=== PATIENT | female | born 1955 | race Caucasian/White ===

== ENCOUNTER → 2021-05-06 | Outpatient (CLI) | payer BC ==
[~2021-05-06] MED LIST: ASPI-630 PO; CETI10TA74 PO; CLON0.1T PO; DICL75TA PO; EPIPEN0.3 MG/0.3 IM; IOHEXOL 180 MG/ML 10 ML VIAL. ONE; LEVE100020 PO; LISI1TAB20 PO; LOVA40TA2 PO; PRED1TAB3 PO; TIZA4TAB8 PO; VITA1TAB60 PO; methylPREDNISolone ACETATE 80 MG/ML VIAL. ONE
--- NOTE | 2021-05-06 16:05 | PDOC1 ---
INITIAL PAIN CONSULT DATE OF SERVICE: DOS: DATE: 05/06/21 TIME: 15:58 CHIEF COMPLAINT: Chief Complaint: Low back and bilateral lower extremity pain HISTORY OF PRESENT ILLNESS: 65-year-old female presents with history of pain low back bilateral lower extremities for many years worse over the past year or so after fall years ago with a pars fracture at L5 with pain chronically but exacerbating over the last year or so patient reports she been working at [employer] and this exacerbated the pain significantly patient has some work restrictions now from her neurosurgeon which she reports is helping but still have significant pain in the low back bilateral lower extremities with stabbing pain sharp pain in the back intermittent intensity numbness and radiating pain in the legs bilaterally aching right essentially equal to left with spasticity and cramping in the legs as well patient reports it wakes her from sleep occasionally but not most nights that she is taking some Zanaflex to help her sleep patient reports is not effective bowel bladder control does affect her ability to walk patient reports she has had epidural injections in 2007 which were very helpful once was in [place] also doing exercise currently patient is taking diclofenac and Zanaflex currently no other medications at this time patient rates her disability rating 0-10 10 being the worst is a 9 with family home responsibilities recreation and occupation 1 with social activity and sexual behavior 5 with self-care 1 with life support activities. Patient have an MRI scan lumbar spine showing multilevel degenerative disc changes with disc bulges ill [id number] and 5 S1 with severe facet arthrosis at L4-5 bilateral recess narrowing at L3-4 L4-5 and L5S1 mild left neuroforaminal narrowing at L4-5 and severe bilateral lateral recess narrowing L5-S1. Patient reports no loss of motor function no bowel or bladder incontinence. PAST MEDICAL HISTORY: PMH: Pretension, arthritis, meningitis, asthma PREVIOUS SURGERIES: Past Surgical Hx: Cervical fusion both anterior and posterior, cervical hemilaminectomy, hysterectomy CURRENT MEDICATIONS: Current Meds: Active Scripts Medications Dose Route/Sig Max Daily Dose Days Date Category Epipen (Epinephrine) 0.3 Mg/0.3 Ml Auto.injct 0.3 Mg IM UD 05/06/21 Reported Prednisone 1 Mg Tablet Unknown Dose PO DAILY PRN 05/06/21 Reported Zyrtec (Cetirizine Hcl) 10 Mg Tablet 1 Tab PO DAILY 05/06/21 Reported Complex B-100 (Vitamin B Complex) 1 Each Tablet.er 1 Each PO DAILY 05/06/21 Reported Lovastatin 40 Mg Tablet 40 Mg PO HS 05/06/21 Reported Clonidine Hcl 0.1 Mg Tablet 1 Tab PO QHS 05/06/21 Reported Zanaflex (Tizanidine Hcl) 4 Mg Tablet 1 Tab PO BID 30 05/06/21 Reported Diclofenac Sodium 75 Mg Tablet.dr 1 Tab PO BID 05/06/21 Reported Lisinopril-Hctz 20-25 Mg Tab (Lisinopril/Hydrochlorothiazide) 1 Each Tablet 1 Tab PO DAILY 05/06/21 Reported Aspirin 81 Mg Tab.chew 1 Tab PO DAILY 05/06/21 Reported Keppra (Levetiracetam) 1,000 Mg Tablet 1 Tab PO BID 30 05/06/21 Reported ALLERGIES; Allergies: Uncoded Allergies: enviroment (Allergy, Severe, Anaphylaxis, 05/06/21) FAMILY HISTORY: Family Hx: Hypertension and heart disease SOCIAL HISTORY: Social Hx: Patient is under alcohol does not smoke says any illegal illicit or recreational drugs is single lives in [facility], and works at [employer]. REVIEW OF SYSTEMS: ROS: Positive for those items mentioned in history of present illness, all systems are reviewed, otherwise negative ,and are complete full and well-documented on patient's chart. PHYSICAL EXAM: VS: Blood pressure is 170/111 pulse 66 respirations 18 temperature is 90.3 F height is 5 feet 7 inches weight is 155 pounds PE: PHYSICAL EXAMINATION: GENERAL: The patient is awake, alert, oriented, appropriate, very pleasant demeanor HEENT: Shows normocephalic, atraumatic. Extraocular movements are intact and symmetrical. Oral cavity: Mucous membranes moist and pink. Dentition is intact. NECK: Shows anterior throat supple without palpable lymphadenopathy noted. Swallow reflex symmetrical. CHEST: Shows normal on inspection. Breath sounds are clear bilaterally, no rales rhonchi wheezes. HEART: Shows S1, S2 clear. No murmurs auscultated. ABDOMEN: Soft, nontender, nondistended, obese. No palpable organomegaly is noted. BACK: Shows spine grossly in the midline. Normal-appearing cervical lordotic curvature. Cervical well-healed surgical scars noted both anteriorly and posteriorly. Patient has full rotation motion cervical spine with lateral as well as full extension full forward flexion without significant difficulty. There is increased thoracic kyphosis, some minor flattening of the lumbar lordotic curvature. Lumbar paraspinous muscles show symmetrical on inspection, on palpation shows some moderate tenderness diffusely throughout the upper, middle and lower distribution of the paraspinous muscles bilaterally and also into the lower thoracic paraspinous musculature, firm and tender, but without specific trigger points, without radiation of pain. The patient has good rotational motion of the lumbar spine, both laterally as well as extension and flexion without significant difficulty. No tenderness over the spinous processes, sacrum or sacroiliac regions. EXTREMITIES: Lower extremities show deep tendon reflexes 2+ in the patellar and tendo calcaneus tendons. Motor exam is 5 on a scale of 5 with right d orsiflexion, extension, quadriceps and hamstring flexion and 5/5 on the left. Peripheral pulses are 1 posterior tibial. No peripheral edema is noted bilaterally. Lower extremities are warm and dry to touch, equal in color and appearance. Straight leg raise noted to be negative bilaterally. Gaenslen's and Vladislav's maneuvers are negative bilaterally as well. The patient is able to stand, stand on her toes without significant difficulty loss of balance, walks with a normal-appearing gait does not appear to favor the right or left lower extremity significantly, is not use any assistive devices with ambulation on her visit today. SKIN: Shows warm and dry, good turgor. No edema. No sores, rashes or bruising throughout. IMPRESSION: Impression: 65-year-old female with long history of low back pain bilateral lower extremity pain worse over the past year or so consistent with radiculopathy. MRI scan lumbar spine as noted Hypertension Arthritis Asthma Plan: Options discussed with the patient including conservative medical management physical therapies interventional techniques. As patient is been through multiple conservative measures and physical therapy over the years she like to pursue interventional techniques. We discussed a lumbar epidural steroid injection using descriptions as well as anatomical models to describe the procedure. Risks were discussed including but not limited to: Bleeding, infection, possibility of epidural hematoma and subsequent neurological compromise, dural puncture, headaches, spinal cord and/or nerve damage, side effects of steroid medication, and poor results regarding pain control. Patient understands and wished to proceed. Patient will return to the clinic in approximately 4 weeks for follow-up, was counseled as to return appointment activity level and side effects to be aware of. Procedure is lumbar epidural steroid injection under local anesthetic using sterile prep and drape at the L4-5 level using C-arm fluoroscopic guidance in both AP and lateral views medications injected is 120 mg Depo-Medrol +10mL preservative-free normal saline and 2 mL contrast- condition at discharge is stable patient tolerated procedure well had no complications. MARIAM MCCORMACK MD May 06, 2021 16:05
--- NOTE | 2021-05-06 16:06 | PDOC4 ---
Procedure Note: ICD 10 Code: ICD 10 Code: M54.16 M51.36 M4 3.17 Procedure Note: Patient was consented for lumbar epidural steroid injection with fluoroscopic guidance. Risks were discussed including but not limited to: Bleeding, infection, possibility of epidural hematoma and subsequent neurological compromise, dural puncture, headaches, spinal cord and/or nerve damage, side effects of steroid medication, and poor results regarding pain control. Patient understands and wished to proceed. Procedure is lumbar epidural steroid injection under local anesthetic using serenity rile prep and drape at the L4-5 level using C-arm fluoroscopic guidance in both AP and lateral views medications injected is 120 mg Depo-Medrol +10mL preservative-free normal saline and 2 mL contrast- condition at discharge is stable patient tolerated procedure well had no complications. MARIAM MCCORMACK MD May 06, 2021 16:06
== END | disposition home or self-care (01) ==
LOC: PNCL 14:20
PROVIDERS: ATTEND Anesthesiology
DX: M54.5 Low back pain (principal); M51.16 Intervertebral disc disorders with radiculopathy, lumbar region; M43.17 Spondylolisthesis, lumbosacral region; M79.605 Pain in left leg; M79.604 Pain in right leg; I10 Essential (primary) hypertension; M19.90 Unspecified osteoarthritis, unspecified site; J45.909 Unspecified asthma, uncomplicated; Z79.82 Long term (current) use of aspirin; Z79.899 Other long term (current) drug therapy; Z90.710 Acquired absence of both cervix and uterus; Z98.890 Other specified postprocedural states; Z82.49 Family history of ischemic heart disease and other diseases of the circulatory system
CPT/HCPCS: 62323; 99205; J1040; Q9965; G0463

== ENCOUNTER → 2021-05-21 | Outpatient (CLI) | payer BC ==
[~2021-05-21] MED LIST changes: -IOHEXOL 180 MG/ML 10 ML VIAL. ONE; -methylPREDNISolone ACETATE 80 MG/ML VIAL. ONE
--- NOTE | 2021-05-21 10:14 | PDOC ---
Progress Note - Pain Clinic Date of Service: DOS: DATE: 05/21/21 TIME: 10:10 Diagnosis: Dx: Lumbar radiculopathy with lumbar degenerative disease lumbar spondylolisthesis History or Present Illness: HPI: 65-year-old female returns for follow-up status post lumbar epidural steroid injection x1 last seen May 06, 2021 patient did very well with about 90 to 100% improvement initially but the pain is beginning to return now about 2 days ago in the low back into the bilateral lower extremities worse on the left than the right posterior gluteus posterior lateral thigh lateral anterior thigh anteromedial thigh medial lower legs also with some significant cramping in the right and left legs and the hamstring regions frequently patient reports is getting to the point where some of the cramping is debilitating where she had this happen when she was standing and was unable to move for several minutes patient reports she had aching pain for about 2 to 3 days following that as well patient reports no new motor or sensory deficits no bowel or bladder incontinence. Patient also has a new finding of spasms in her upper arms bilaterally as well which are infrequent but are painful at that time and occur mostly at night. Reviewed patient's medication list and she is taking Zanaflex at night because it does make her drowsy but is not sure this is helping to reduce the cramping and spasticity. Physical Exam: VS: Blood pressure is 130/86 pulse 78 respirations 16 temperature 90.0 F weight is 154 pounds PE: PHYSICAL EXAMINATION: GENERAL: The patient is awake, alert, oriented, appropriate, very pleasant in demeanor HEENT: Shows normocephalic, atraumatic. Extraocular movements are intact and symmetrical. Oral cavity: Mucous membranes moist and pink. Dentition is intact. NECK: Shows anterior throat supple without palpable lymphadenopathy noted. Swallow reflex symmetrical. CHEST: Shows normal on inspection. Breath sounds are clear bilaterally, distant no rales or. HEART: Shows S1, S2 clear. No murmurs auscultated. ABDOMEN: Soft, nontender, nondistended, obese. No palpable organomegaly is noted. BACK: Shows spine grossly in the midline. Normal-appearing cervical lordotic curvature. There is slightly increased thoracic kyphosis, some flattening of the lumbar lordotic curvature. Lumbar paraspinous muscles show symmetrical on inspection, on palpation shows some moderate tenderness diffusely throughout the upper, middle and lower distribution of the paraspinous muscles without specific trigger points, without radiation of pain. The patient has good rotational motion of the lumbar spine, both laterally as well as extension and flexion without significant difficulty. EXTREMITIES: Lower extremities show deep tendon reflexes 2+ in the patellar and tendo calcaneus tendons. Motor exam is 5 on a scale of 5 with right dorsiflexion, extension, quadriceps and hamstring flexion and 5/5 on the left. Peripheral pulses are 1 posterior tibial. No peripheral edema is noted bilaterally. Lower extremities are warm and dry to touch, equal in color and appearance. SKIN: Shows warm and dry, good turgor. No edema. No sores, rashes or bruising throughout. Procedure: Procedure: Options discussed with patient. Patient chart was reviewed as her current medication regimen updated current review of systems updated today as well. We will prescribe Medrol Dosepak with instructions side effects beware of. Patient will return approximately 2 weeks as she will have insurance authorization for time limitation on conventional treatment. Patient was given instructions well side effects beware with the medication. Medication Injected: Med Injected: None Condition at Discharge: Condition at Discharge: Condition at discharge is stable. MARIAM MCCORMACK MD May 21, 2021 10:14
== END | disposition home or self-care (01) ==
LOC: PNCL 09:33
PROVIDERS: ATTEND Anesthesiology
DX: M51.16 Intervertebral disc disorders with radiculopathy, lumbar region (principal); M43.16 Spondylolisthesis, lumbar region; Z79.82 Long term (current) use of aspirin; Z79.899 Other long term (current) drug therapy; Z88.8 Allergy status to other drugs, medicaments and biological substances
CPT/HCPCS: 99212; G0463

== ENCOUNTER → 2021-06-25 | Outpatient (CLI) | payer BC ==
[~2021-06-25] MED LIST changes: +IOHEXOL 180 MG/ML 10 ML VIAL. ONE; -LISI1TAB20 PO; +LISI1TAB39 PO; +methylPREDNISolone ACETATE 40 MG/ML VIAL. ONE; +methylPREDNISolone ACETATE 80 MG/ML VIAL. ONE
--- NOTE | 2021-06-25 08:51 | PDOC ---
Progress Note - Pain Clinic Date of Service: DOS: DATE: 06/25/21 TIME: 08:48 Diagnosis: Dx: Lumbar radiculopathy with lumbar degenerative disease and lumbar spondylolisthesis History or Present Illness: HPI: 65-year-old female returns for follow-up status post lumbar epidural steroid injection with about 50% improvement after the first injection the pain low back and the right lower extremity patient reports she can increase activities greater ease and comfort doing household activities work activities travel with greater ease sleeping better patient reports is beginning awakening from sleep however over the past few days but most times has been doing much better patient reports pain is aching in the low back rating the right lower extremity up and the left lower extremity to some extent right lateral thigh anterior thigh medial thigh medial lower leg and across the low back patient rates pain as a 9 on scale 10 is worse over the past week 7 8 on average 5 its least is a 5 today. Patient reports no new motor or sensory deficits no bowel or bladder incontinence. Patient reports no loss of motor function and no bowel or bladder incontinence. Patient has questions regarding her medications and has discontinued her Zanaflex and is questioning her diclofenac. We discussed this and will change the diclofenac to a new medication of meloxicam 15 mg daily. Patient was given instructions well side effects aware with the medication. Physical Exam: VS: Blood pressure is 145/101 pulse 65 respirations 16 temperature 98.1F height is 5 foot 6 inches weight is 156 pounds. PE: PHYSICAL EXAMINATION: GENERAL: The patient is awake, alert, oriented, appropriate, very pleasant in demeanor HEENT: Shows normocephalic, atraumatic. Extraocular movements are intact and symmetrical. Oral cavity: Mucous membranes moist and pink. Dentition is intact. NECK: Shows anterior throat supple without palpable lymphadenopathy noted. Swallow reflex symmetrical. CHEST: Shows normal on inspection. Breath sounds are clear bilaterally, distant but no rales or rhonchi. HEART: Shows S1, S2 clear. No murmurs auscultated. ABDOMEN: Soft, nontender, nondistended. No palpable organomegaly is noted. BACK: Shows spine grossly in the midline. Normal-appearing cervical lordotic curvature. There is slightly increased thoracic kyphosis, some minor flattening of the lumbar lordotic curvature. Lumbar paraspinous muscles show symmetrical on inspection, on palpation shows some moderate tenderness diffusely throughout the upper, middle and lower distribution of the paraspinous muscles, but without specific trigger points, without radiation of pain. The patient has good rotational motion of the lumbar spine, both laterally as well as extension and flexion without significant difficulty. EXTREMITIES: Lower extremities show deep tendon reflexes 2+ in the patellar and tendo calcaneus tendons. Motor exam is 5 on a scale of 5 with right dorsiflexion, extension, quadriceps and hamstring flexion and 5/5 on the left. Peripheral pulses are 1 posterior tibial. No peripheral edema is noted bilaterally. Lower extremities are warm and dry to touch, equal in color and appearance. SKIN: Shows warm and dry, good turgor. No edema. No sores, rashes or bruising throughout. Procedure: Procedure: Options were discussed with the patient. Patient chart reviews her current medication regimen updated current review of systems updated today as well. We will proceed with a second lumbar epidural steroid traction today with fluoroscopic guidance. Risks were discussed including but not limited to: Bleeding, infection, possibility of epidural hematoma and subsequent neurological compromise, dural puncture, headaches, spinal cord and/or nerve damage, side effects of steroid medication, and poor results regarding pain control. Patient understands and wished to proceed. Patient will return to clinic in approximate 2 weeks for follow-up, was counseled as return appointment, activity level, and side effects beware. Also, will add new medication of meloxicam 15 mg and discontinue diclofenac. Patient was given instructions as well as side effects aware with the medication. Medication Injected: Med Injected: Procedure is lumbar epidural steroid injection under local anesthetic using sterile prep and drape at the L4-5 level using C-arm fluoroscopic guidance in both AP and lateral views medications injected is 120 mg Depo-Medrol +10mL preservative-free normal saline and 2 mL contrast- condition at discharge is stable patient tolerated procedure well had no complications. Condition at Discharge: Condition at Discharge: Condition at discharge stable, patient tolerated procedure well and had no complications. MARIAM MCCORMACK MD Jun 25, 2021 08:51
--- NOTE | 2021-06-25 08:52 | PDOC4 ---
Procedure Note: ICD 10 Code: ICD 10 Code: M54.16 M51.36 Procedure Note: Patient was consented for lumbar epidural steroid injection with fluoroscopic guidance. Risks were discussed including but not limited to: Bleeding, infection, possibility of epidural hematoma and subsequent neurological compromise, dural puncture, headaches, spinal cord and/or nerve damage, side effects of steroid medication, and poor results regarding pain control. Patient understands and wished to proceed. Procedure is lumbar epidural steroid injection under local anesthetic using sterile prep and drape at the L4-5 level using C-arm fluoroscopic guidance in both AP and lateral views medications injected is 120 mg Depo-Medrol +10mL preservative-free normal saline and 2 mL contrast- condition at discharge is stable patient tolerated procedure well had no complications. MARIAM MCCORMACK MD Jun 25, 2021 08:52
== END | disposition home or self-care (01) ==
LOC: PNCL 08:03
PROVIDERS: ATTEND Anesthesiology
DX: M51.16 Intervertebral disc disorders with radiculopathy, lumbar region (principal); M43.16 Spondylolisthesis, lumbar region; Z79.82 Long term (current) use of aspirin; Z79.899 Other long term (current) drug therapy
CPT/HCPCS: 62323; J1030; J1040; Q9965

== ENCOUNTER → 2021-07-29 | Outpatient (CLI) | payer BC ==
--- NOTE | 2021-07-29 10:36 | PDOC ---
Progress Note - Pain Clinic Date of Service: DOS: DATE: 07/29/21 TIME: 10:33 Diagnosis: Dx: Lumbar radiculopathy with lumbar degenerative disc disease and lumbar spondylolisthesis History or Present Illness: HPI: 65-year-old female returns in follow-up status post lumbar epidural steroid injection x2. Patient last seen June 25 did very well after last injection with about 75% improvement for just over a month patient reports pain returning now in the low back and in the right side greater than left posterior gluteus po sterior lateral thigh lateral anterior thigh anteromedial thigh medial lower leg patient reports is mostly in the back but also in the right leg rated as an 8 on scale 10 is worse over the past week for an average to its least is a 4 today patient reports aching sharp burning radiating with walking standing worse with sitting or changing positions but better with laying down generally does not awaken her from sleep at night. Patient reports no bowel or bladder incontinence some left-sided pain which is new for her as well as some increased headaches and also increased blood pressure. Patient is diastolic is 115 rechecked was 128 today patient reports she is looking for a new primary care physician we encouraged her and gave her several names of local primary physicians were taking new patients especially to deal with the blood pressure issue. Patient understands and agrees. Patient reports no bowel or bladder incontinence. Physical Exam: VS: Blood pressure is 125/115 pulse 62 respirations 18 temperature 98.0 degrees. Height is 5 foot 6 inches, weight 156 pounds PE: PHYSICAL EXAMINATION: GENERAL: The patient is awake, alert, oriented, appropriate, very pleasant in demeanor. HEENT: Shows normocephalic, atraumatic. Extraocular movements are intact and symmetrical. Oral cavity: Mucous membranes moist and pink. Dentition is in tact. NECK: Shows anterior throat supple without palpable lymphadenopathy noted. Swallow reflex symmetrical. CHEST: Shows normal on inspection. Breath sounds are clear bilaterally, distant but no rales or rhonchi. HEART: Shows S1, S2 clear. No murmurs auscultated. ABDOMEN: Soft, nontender, nondistended, obese. No palpable organomegaly is noted. BACK: Shows spine grossly in the midline. Normal-appearing cervical lordotic curvature. There is slightly increased thoracic kyphosis, some minor flattening of the lumbar lordotic curvature. Lumbar paraspinous muscles show symmetrical on inspection, on palpation shows some moderate tenderness diffusely throughout the upper, middle and lower distribution of the paraspinous muscles without specific trigger points, without radiation of pain. The patient has good rotational motion of the lumbar spine, both laterally as well as extension and flexion without significant difficulty. EXTREMITIES: Lower extremities show deep tendon reflexes 2+ in the patellar and tendo calcaneus tendons. Motor exam is 5 on a scale of 5 with right dorsiflexion, extension, quadriceps and hamstring flexion and 5/5 on the left. Peripheral pulses are 1+ posterior tibial. No peripheral edema is noted bilaterally. Lower extremities are warm and dry to touch, equal in color and appearance. SKIN: Shows warm and dry, good turgor. No edema. No sores, rashes or bruising throughout. Procedure: Procedure: Options were discussed with patient. Patient chart was reviewed as her current medication regimen updated review of systems updated today as well. We will proceed with a lumbar epidural steroid injection stable fluoroscopic guidance. Risks were discussed including but not limited to: Bleeding, infection, pos sibility of epidural hematoma and subsequent neurological compromise, dural puncture, headaches, spinal cord and/or nerve damage, side effects of steroid medication, and poor results regarding pain control. Patient understands and wished to proceed. Patient will return to clinic in approximately 2 weeks for follow-up, was counseled as return appointment, activity level, and side effects beware. Discussed patient's diastolic blood pressure today and importance of following up with a primary care physician again we have her names and locations of several primary care physicians in the area with recommendations to see them as soon as possible as her diastolic is consistently over 110. Patient voices understanding. Medication Injected: Med Injected: Procedure is lumbar epidural steroid injection under local anesthetic using sterile prep and drape at the L4-5 level using C-arm fluoroscopic guidance in both AP and lateral views medications injected is 120 mg Depo-Medrol +10mL pre servative-free normal saline and 2 mL contrast- condition at discharge is stable patient tolerated procedure well had no complications. Condition at Discharge: Condition at Discharge: Condition at discharge stable, paced tolerated procedure well and had no complications. MARIAM MCCORMACK MD Jul 29, 2021 10:36
--- NOTE | 2021-07-29 10:37 | PDOC4 ---
Procedure Note: ICD 10 Code: ICD 10 Code: M54.16 M51.36 Procedure Note: Patient was consented for lumbar epidural steroid injection with fluoroscopic guidance. Risks were discussed including but not limited to: Bleeding, infection, possibility of epidural hematoma and subsequent neurological compromise, dural puncture, headaches, spinal cord and/or nerve damage, side effects of steroid medication, and poor results regarding pain control. Patient understands and wished to proceed. Procedure is lumbar epidural steroid injection under local anesthetic using sterile prep and drape at the L4-5 level using C-arm fluoroscopic guidance in both AP and lateral views medications injected is 120 mg Depo-Medrol +10mL preservative-free normal saline and 2 mL contrast- condition at discharge is stable patient tolerated procedure well had no complications. MARIAM MCCORMACK MD Jul 29, 2021 10:37
== END | disposition home or self-care (01) ==
LOC: PNCL 09:06
PROVIDERS: ATTEND Anesthesiology
DX: M51.16 Intervertebral disc disorders with radiculopathy, lumbar region (principal); M43.16 Spondylolisthesis, lumbar region; Z79.82 Long term (current) use of aspirin; Z79.899 Other long term (current) drug therapy; Z88.8 Allergy status to other drugs, medicaments and biological substances
CPT/HCPCS: 62323; J1030; J1040; Q9965

== ENCOUNTER → 2021-11-09 | Outpatient (CLI) | payer BC ==
[~2021-11-09] MED LIST changes: +DEXAMETHASONE PRES.FREE 10 MG/ML VIAL. ONE; +LISI-130 PO; -methylPREDNISolone ACETATE 40 MG/ML VIAL. ONE; -methylPREDNISolone ACETATE 80 MG/ML VIAL. ONE
--- NOTE | 2021-11-09 09:41 | PDOC ---
Progress Note - Pain Clinic Date of Service: DOS: DATE: 11/09/21 TIME: 09:38 Diagnosis: Dx: Lumbar radiculopathy with lumbar degenerative disease and lumbar spondylolisthesis History or Present Illness: HPI: First -[id number] female returns for follow-up status post lumbar epidural steroid injection last seen July 29, 2021 patient did very well with about 75% improvement so and the pain began to return in the low back and bilateral lower extremities posterior gluteus posterior lateral thigh lateral anterior thighs anterior medial thighs medial lower legs and is becoming more noticeable over the past few weeks patient reports no specific injury or accident that she is aware but increasing with walking standing change positions initially is doing much better with distance walking doing household activities work activities which is exacerbating the pain at work she is still working part-time secondary to the pain patient reports her pain is a 7 on scale 10 is worse over the past week 5 on average to its least is a 5 today patient scribes as aching and sharp in the back radiating shooting on and off in intensity in the lower extremities. Patient reports no bowel or bladder incontinence. We discussed her blood pressure on her last visit she has not seen her primary care physician regarding this today as a diastolic of 97. We did discuss a different muscle relaxers which may help with some of the tightness in her back and will prescribe new prescription medication of Skelaxin 800 mg 6 every 6 hours as needed patient was given instructions well side effects aware of any medication. Physical Exam: VS: Blood pressure 156/97 pulse 65 respirations 16 temperature 98.2 F height is 5 foot 6 inches weight is 166 pounds. PE: PHYSICAL EXAMINATION: GENERAL: The patient is awake, alert, oriented, appropriate, very pleasant in demeanor HEENT: Shows normocephalic, atraumatic. Extraocular movements are intact and symmetrical. Oral cavity: Mucous membranes moist and pink. Dentition is intact. NECK: Shows anterior throat supple without palpable lymphadenopathy noted. Swallow reflex symmetrical. CHEST: Shows normal on inspection. Breath sounds are clear bilaterally, no rales rhonchi wheezes auscultated. HEART: Shows S1, S2 clear. No murmurs auscultated. ABDOMEN: Soft, nontender, nondistended. No palpable organomegaly is noted. BACK: Shows spine grossly in the midline. Normal-appearing cervical lordotic curvature. There is slightly increased thoracic kyphosis, some mild flattening of the lumbar lordotic curvature. Lumbar paraspinous muscles show symmetrical on inspection, on palpation shows some moderate tenderness diffusely throughout the upper, middle and lower distribution of the paraspinous muscles, but without specific trigger points, without radiation of pain. The patient has good rotational motion of the lumbar spine, both laterally as well as extension and flexion without significant difficulty. No tenderness over the spinous processes, sacrum or sacroiliac regions. EXTREMITIES: Lower extremities show deep tendon reflexes 2+ in the patellar and tendo calcaneus tendons. Motor exam is 5 on a scale of 5 with right dorsiflexion, extension, quadriceps and hamstring flexion and 5/5 on the left. Peripheral pulses are 1+ posterior tibial. No peripheral edema is noted bilaterally. Lower extremities are warm and dry. SKIN: Shows warm and dry, good turgor. No edema. No sores, rashes or bruising throughout. Procedure: Procedure: Options were discussed with patient. Patient's old chart was reviewed as her current medication regimen updated current review of systems updated today as well. We will proceed with a lumbar epidural steroid ejections today with fluoroscopic guidance. Risks were discussed including but not limited to: Bleeding, infection, possibility of epidural hematoma and subsequent neurological compromise, dural puncture, headaches, spinal cord and/or nerve damage, side effects of steroid medication, and poor results regarding pain control. Patient understands and wished to proceed. Patient will return to clinic in approximately 2 weeks for follow-up, was counseled as to return appointment, activity level, and side effect to be aware of. Medication Injected: Med Injected: Procedure is lumbar epidural steroid injection under local anesthetic using sterile prep and drape at the L4-5 level using C-arm fluoroscopic guidance in both AP and lateral views medications injected is 20 mg dexamethasone +10mL pr eservative-free normal saline and 2 mL contrast- condition at discharge is stable patient tolerated procedure well had no complications. Condition at Discharge: Condition at Discharge: Condition at discharge is stable, patient tolerated the procedure well and had no complications. MARIAM MCCORMACK MD Nov 09, 2021 09:41
--- NOTE | 2021-11-09 09:42 | PDOC4 ---
Procedure Note: ICD 10 Code: ICD 10 Code: M54.16 M51.36 Procedure Note: Patient was consented for lumbar epidural steroid injection with fluoroscopic guidance. Risks were discussed including but not limited to: Bleeding, infection, possibility of epidural hematoma and subsequent neurological compromise, dural puncture, headaches, spinal cord and/or nerve damage, side effects of steroid medication, and poor results regarding pain control. Patient understands and wished to proceed. Procedure is lumbar epidural steroid injection under local anesthetic using sterile prep and drape at the L4-5 level using C-arm fluoroscopic guidance in both AP and lateral views medications injected is 20 mg dexamethasone +10mL preservative-free normal saline and 2 mL contrast- condition at discharge is stable patient tolerated procedure well had no complications. MARIAM MCCORMACK MD Nov 09, 2021 09:42
== END | disposition home or self-care (01) ==
LOC: PNCL 08:51
PROVIDERS: ATTEND Anesthesiology
DX: M51.16 Intervertebral disc disorders with radiculopathy, lumbar region (principal); M43.16 Spondylolisthesis, lumbar region; Z79.899 Other long term (current) drug therapy; Z88.8 Allergy status to other drugs, medicaments and biological substances
CPT/HCPCS: 62323; J1100; Q9965